=== PATIENT | male | born 1950 | race Caucasian/White ===

== ENCOUNTER 2020-08-18 08:46 | Emergency (ER) | payer OTHER, SELFPAY ==
[2020-08-18] VITALS (20 sets, daily range): BP systolic 166–179; BP diastolic 84–107; PULSE 60–84; RESP 11–25; TEMP 36.6–37.1; O2SAT 94–99
--- NOTE | 2020-08-18 08:45 | RT.EKG_ITS ---
APPROVED REPORT Exam: Resting ECG Reason for Exam: dizzy Patient Location: E HR:73 bpm ECG Measurements Heart Rate 73 AXIS AZ 146 P 70 QRSd 95 QRS -7 QT 358 T 2 QTc 394 Conclusion Sinus rhythm...normal P axis, V-rate 60- 99 Probable left atrial enlargement...P >50mS, <-0.10mV V1 Nonspecific repol abnormality, diffuse leads...ST dep, T flat/neg, ant/lat/inf. Less than 1mm ST depression in V4-6. I have reviewed and interpreted ECG and agree with software generated interpretation. No STEMI. No acute EKG to compare.
--- NOTE | 2020-08-18 08:49 | W.ED.GENAD ---
Discharge Plan Disposition Patient Disposition: HOME Condition: Fair Discharge Details Clinical Impression: Fatigue, Stress, Episodic lightheadedness Primary Care Provider: Unknown,Unknown ED Provider: Cyndy Vanessa Home Meds and New Rx's Prescriptions: Continued atorvastatin [Lipitor] 40 mg Tablet 40 mg PO DAILY RF: 0 atenolol 25 mg Tablet 25 mg PO DAILY RF: 0 hydrochlorothiazide 25 mg Tablet 25 mg PO DAILY RF: 0 geriatric multivitamin-min Tablet 1 tab PO DAILY RF: 0 ramipril 10 mg Tablet 10 mg PO BID RF: 0 Discharge Instructions Instructions: Stress (ED), Acute Coronary Syndrome (ED) Additional Instructions: Your labs and imaging are reassuring here today. However, I am concerned that this is associated with your heart diseasen and may be unstable angina. As we discussed, I would like for you to have an outpatient stress test. Until this is been completed, please do not physically exert yourself. Please return immediately if you develop shortness of breath, chest pain, lightheadedness or passing out. Please also follow-up with your primary care this week. I have asked our care management team to ensure that you receive prompt follow-up this coming week. I am also very concerned regarding the amount of stress you have. As much as you can, please take time for yourself and reduce stress. Attached is a list of local behavioral health professional. If you feel that counseling may be of benefit to you. Please also discuss this further with your primary care. In regard to your difficulty sleeping, you may find melatonin of benefit. If you develop any new or worsening symptoms please seek care urgently once again. Medical Decision Making Patient is a pleasant 70-year-old male presenting today with chief complaints of exertional fatigue and lightheadedness. 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 Has been receiving his care at [facility] but recently moved to [facility]. He reports over the past several months he has been noticing increased exertional fatigue and lightheadedness. States that this morning when snowblowing he would frequently have to stop and rest for approximately 5 minutes for full cessation of his symptoms. He denied any shortness of breath or chest pain associated with this. States over the past 2 days symptoms have become much worse and is requiring much less exertion for him to develop symptoms. States that now just ambulation will make him lightheaded and fatigued. He reports his symptoms resolved after approximately 1 minute of rest. He is asymptomatic currently. Denies any nausea or vomiting. States that he did have one episode of back pain while mowing but believes is associated with the position in which he was holding the molar. This pain subsided after he stopped swelling. No back pain since then, this was a few days ago. Denies any headache, visual change, focal areas of weakness. Denies any vertiginous symptoms. Describes the lightheadedness as presyncopal is not had any syncopal episodes. On exam patient appears anxious. He reports that he is very stressed as he lost his job recently and has been having difficulty finding a new job. He believes that this is contributing to his symptoms. Lungs are clear. Normal cardiac exam. No lower extremity edema, calf tenderness. Distal pulses are intact. Consult with patient's , [place] [phone]. She reports the patient did undergo an echocardiogram as well as a stress test in January both of which were negative which was completed at [facility]. She also reports that he had an MRI of his head last December as he was having difficulty with mentation, this was found to be negative. She is very concerned regarding stress level and inability to find employment. EKG was obtained and reviewed by Dr. Weinstein. Patient is in normal sinus rhythm with a rate of 73. He does have slight ST depression in V4 through the 6 less than 1 mm. No STEMI or other acute ischemic changes noted. Concern primarily at this time for unstable angina versus NSTEMI. Patient does have significant cardiac history and has progressively worsening exertional symptoms. Also considered PE. His exam and history is not consistent with dissection. Also considered stress and anxiety driven symptoms. Labs reviewed. CBC without signficant abnoramlity. D-dimer WNL. CMP without signficant abnormaliy. Troponin <0.05. No symptoms today, last had his exertional lightheadedness and fatigue yesterday. T4 WNL. CXR reviewed by radiologist: FINDINGS: Lungs: Unremarkable. No consolidation. Pleural spaces: Unremarkable. No pleural effusion. No pneumothorax. Heart/Mediastinum: The patient has undergone coronary bypass surgery. The cardiac silhouette is at the upper limit of normal size. Bones/joints: Unremarkable. IMPRESSION: Status post coronary bypass. No acute chest abnormality. Patient and I discussed labs and imaging. He continues to be asymptomatic. He has not had any symptoms today. We discussed disposition. I advised that I am concerned for unstable angina and recommended admission. Patient would prefer discharge home. Patient does live locally and is able to return promptly if he develops any recurrence or worsening symptoms. He is aware of the risks associated with my concerns of unstable angina, the potential risk of being discharged home. I do feel the patient has capacity to make this decision. He will avoid any exertional symptoms and will try stress reduction techniques. I am concerned about the amount of stress he is been having. The is also concerned about this as well as financial stressors. I have asked our care management team to reach out to them both regarding financial stress as well as help establish primary care with prompt follow-up this week. List of behavioral health services will be sent home with the patient. Plan for stress testing as soon as possible. Patient is on daily ASA. He will continue to monitor his BP at home and will discuss his elvated BP with his PCP. Strict return precautions were discussed. All of his quesitons and concerns were addressed, he is in agreement with this plan. HPI General Mode of arrival: ambulatory. Date/Time Provider Initiated Documentation: 08/18/20 08:49. Limitations to Documentation: no limitations. Information obtained by: patient and RN notes reviewed. History of Present Illness 70 year old M presents to the emergency department with the chief complaint of exertional fatigue, lightheadedness, described as moderate, with intensity rated at 1 (no pain ). and is localized to the back (had one episode of back pain, thought to be muscular, while mowing. ). Patient reports no radiation. Patient started experiencing this day(s) (has had increasing exertional symptoms over past several months, worse x2 days) and it has been intermittent. Immobilization improves symptom(s), Movement worsens symptoms . Patient notes denies chest pain, cough, diaphoresis, fever/chills, headaches, loss of appetite, nausea/vomiting, rash, shortness of breath, syncope and weakness. Patient did receive the following treatments prior to arrival, none Related Data Home Medications Medication Instructions Recorded Confirmed atenolol 25 mg PO DAILY 08/18/20 08/18/20 atorvastatin [Lipitor] 40 mg PO DAILY 08/18/20 08/18/20 geriatric multivitamin-min 1 tab PO DAILY 08/18/20 08/18/20 hydrochlorothiazide 25 mg PO DAILY 08/18/20 08/18/20 ramipril 10 mg PO BID 08/18/20 08/18/20 Allergies Allergy/AdvReac Type Severity Reaction Status Date / Time Penicillins Allergy Unverified 08/18/20 09:04 Review of Systems Constitutional Constitutional: Reports as per HPI, Denies chills, Denies fever(s), Denies headache(s), Denies lethargy and Denies poor appetite Eyes Eyes: Denies change in vision ENT Ears, Nose, Mouth, and Throat: Reports dizziness (lightheaded with exertion) and Denies headache(s) Cardiovascular Cardiovascular: Reports as per HPI, Denies chest pain, Denies chest pain at rest, Denies chest pain with activity, Denies syncope, Denies leg edema, Reports lightheadedness, Denies radiating jaw, neck or arm pain, Denies palpitations, Denies dyspnea and Denies dyspnea on exertion Respiratory Respiratory: Reports as per HPI, Denies chest congestion, Denies cough, Denies pain on inspiration, Denies pain with cough, Denies dyspnea, Denies dyspnea on exertion and Denies wheezing Gastrointestinal Gastrointestinal: Reports as per HPI, Denies abdominal pain, Denies diarrhea, Denies nausea and Denies vomiting Genitourinary Genitourinary: Denies system reviewed and no additional complaints, except as documented (denies change in urinary habits) Musculoskeletal Musculoskeletal: Reports as per HPI and Denies back pain Integumentary/Breasts Skin/Breast: Reports as per HPI and Denies rash Neurologic Neurologic: Reports as per HPI, Reports dizziness (lightheaded with exertion), Denies syncope and Denies headache(s) Endocrine Endocrine: Denies palpitations Allergic/Immunologic Allergic/Immunologic: Denies wheezing PFSH Social History Smoking/Tobacco Use Status: Never Smoking risk assessment performed?: Yes Alcohol Intake: former Drug use: Never Substance use type: does not use Do you feel safe at home: Yes Do you feel safe in your relationship?: Yes Exam Const General: cooperative, healthy appearing, comfortable, no acute distress and well developed Nutritional Appearance: average body habitus and well nourished Orientation: alert, awake and oriented x3 HENMT Head: normal to inspection Ears: hearing grossly normal bilaterally Mouth: moist mucous membranes Chest Chest: normal inspection of the chest, normal palpation of entire chest wall and no crepitus Resp Effort & Inspection: normal respiratory effort, able to speak in complete sentences and no respiratory distress Auscultation: clear to auscultation bilaterally, no rales, no rhonchi and no wheezes Cardio Rate: regular rate Rhythm: regular rhythm Heart Sounds: S1 normal and S2 normal GI Inspection: normal to inspection, no edema and non-distended Palpation: soft, no hepatosplenomegaly, not firm, no guarding, not rigid and nontender Auscultation: normal bowel sounds Back/Spine/Pelvis Thoracic/Lumbar Spine: thoracic and lumbar spine normal to inspection, No thoracic spinal tenderness and No lumbar spinal tenderness Skin General skin exam: no rashes or lesions noted Trauma: no lacerations or abrasions Neuro General: patient alert, patient awake and patient oriented x3 Cognition: normal cognition Speech: speech normal Gait: normal gait Extrem General: normal to inspection, capillary refill normal, no pedal edema, no calf tenderness, normal gait and other (1+ distal pulses in all extremities) Psych Appearance: grossly normal and well kempt Mental Status: mental status grossly normal Speech and Movement: speech and movement normal
--- NOTE | 2020-08-18 09:00 | DI.RAD_ITS ---
Exam(s) XR CHEST 2V PA LATERAL EXAM: XR CHEST 2V PA LATERAL CLINICAL HISTORY: exertiopnal fatigue, lightheadedness, CP TECHNIQUE: COMPARISON: No exams were available for comparison FINDINGS: The heart is at the upper limits of normal in size. The lungs appear clear. There is evidence of pr ior CABG surgery. There is no pleural effusion. IMPRESSION: No evidence of acute process. RADIATION DOSE DELIVERED: Total DLP
[2020-08-18 09:10] LABS: Abs Immature Grans 0.03 10^3/uL (0.0-0.06); Absolute Basophil Count 0.03 10^3/uL (0.0-0.2); Absolute Eosinophil Count 0.04 10^3/uL (0.0-0.7); Absolute Lymphocyte Count 0.89 10^3/uL (1.2-3.4); Absolute Monocyte Count 0.42 10^3/uL (0.1-0.8); Absolute Neutrophil Count 5.06 10^3/uL (1.2-6.7); Basophils % 0.5; Eosinophils % 0.6; HCT 47.2 % (40.0-50.0); HGB 15.5 g/dL (13.5-17.5); Immature Grans % 0.5; Lymphocytes % 13.8; MCH 29.1 pg (27.0-33.0); MCHC 32.8 % (32.0-36.0); MCV 88.6 fL (80-95); Monocytes % 6.5; Neutrophils % 78.1; Nucleated RBC 0 %; Platelet Count 239 10^3/uL (130-400); RBC 5.33 10^6/uL (4.36-5.78); RDW 12.6 % (11.8-14.1); RDW-SD 40.9 fL; WBC 6.47 10^3/uL (4.4-10.8)
[2020-08-18] MEDS: Aspirin 81 MG CHEW 324 MG CH (09:20)
[2020-08-18] MEDS: Normal Saline Flush 10 ML SYR IVP (09:22)
[2020-08-18 09:24] LABS: PTT Activated 25.9 sec (21.0-27.5); Prothrombin Time 10.1 sec (9.3-11.0)
[2020-08-18] MEDS: Atenolol 25 MG TAB PO (09:24)
[2020-08-18] MEDS: hydroCHLOROthiazide 25 MG TAB PO (09:24)
[2020-08-18 09:28] LABS: Bilirubin Negative (Negative); Blood Small (Negative); Clarity Clear (Clear); Glucose Negative (Negative); Ketones Negative (Negative); Leukocyte Esterase Negative (Negative); Nitrite Negative (Negative); Urobilinogen 0.2 EU/dL (Up TO 0.2)
[2020-08-18 09:32] LABS: ALT 24 U/L (16-63); AST 16 U/L (15-37); Albumin 4.3 g/dL (3.4-5.0); Alkaline Phosphatase 66 U/L (46-116); BUN 16 mg/dL (7-18); Bilirubin, Total 0.7 mg/dL (0.2-1.0); CREATININE 1.1 mg/dL (0.70-1.30); Calcium 9.4 mg/dL (8.5-10.1); Chloride 104 mmol/L (98-107); Glucose 125 mg/dL (74-106); Magnesium 1.9 mg/dL (1.8-2.4); Potassium 4.3 mmol/L (3.5-5.1); Sodium 142 mmol/L (136-145); TSH 3.76 uIU/mL (0.36-3.74); Total Protein 7.7 g/dL (6.4-8.2); Troponin I < 0.05 ng/mL (<0.06)
[2020-08-18 09:43] LABS: Bacteria Rare HPF (Negative); C & S Indicated? No; Casts Negative LPF (Negative); Crystals Negative HPF (Negative); Epithelial Cells Negative HPF (Negative); Mucus Negative (Negative); WBC Negative HPF (0-5)
[2020-08-18] MEDS: Atorvastatin 40 MG TAB PO (09:55)
[2020-08-18 10:01] LABS: D-Dimer 188 ng/mlFEU (<500)
--- NOTE | 2020-08-18 10:54 | DI.VRAD_ITS ---
PROCEDURE INFORMATION: Exam: XR Chest Exam date and time: 08/18/2020 9:01 AM Age: 70 years old Clinical indication: Other: Fatigue TECHNIQUE: Imaging protocol: XR of the chest. Views: 2 views. COMPARISON: No relevant prior studies available. FINDINGS: Lungs: Unremarkable. No consolidation. Pleural spaces: Unremarkable. No pleural effusion. No pneumothorax. Heart/Mediastinum: The patient has undergone coronary bypass surgery. The cardiac silhouette is at the upper limit of normal size. Bones/joints: Unremarkable. IMPRESSION: Status post coronary bypass. No acute chest abnormality. Dictated and Authenticated by: Serg Alonso MD. Ordering:BIBI Naylor MD
[2020-08-18 11:03] LABS: Source Nasal/Nares
--- NOTE | 2020-08-18 11:07 | NUR.NOTE ---
Nursing Note: faxed referral to [facility]
[2020-08-18 15:29] LABS: COVID-19 PCR Negative (Negative)
--- NOTE | 2020-08-19 08:19 | NUR.NOTE ---
patient contacted and advised of negative covid test results.
== END 2020-08-18 10:59 | disposition home or self-care (01) ==
PROVIDERS: Emergency Provider Physician Assistant
DX: R42 Dizziness and giddiness (principal); R53.83 Other fatigue
CPT/HCPCS: 36415; 80053; 87635; 93005; 99284; 71046; 81003; 81015; 83735; 84439; 84443; 84484; 85025; 85379; 85610; 85730; 93010; 99283

== ENCOUNTER 2020-08-28 00:59 | Outpatient (CLI) | payer OTHER, SELFPAY ==
--- NOTE | 2020-08-28 15:43 | NUR.NOTE ---
Nursing Note: Patient presented for ETT on time this morning. Was hooked up to ECG monitor and noted to have T wave inversions in leads II, III, aVF, V4-V6, which would make the ETT test nondiagnostic. Dr. Bowman recommended MPI order if further workup desired by PCP. Patient understanding and agreeable to plan. This RN contacted PCP office ([facility]) and spoke to nurse [place], who stated she would pass the information along to PCP regarding need for MPI order if follow-up needed.
== END 2020-08-28 01:19 ==
PROVIDERS: PCP Nurse Practitioner Adult Health; Visit Provider Physician Assistant
DX: I25.10 Atherosclerotic heart disease of native coronary artery without angina pectoris (principal); Z53.09 Procedure and treatment not carried out because of other contraindication; R94.31 Abnormal electrocardiogram [ECG] [EKG]

== ENCOUNTER → 2020-08-31 11:38 | Outpatient (BNVA) | payer OTHER, SELFPAY | PROVIDERS: PCP Nurse Practitioner Adult Health; Referring Provider Nurse Practitioner Adult Health; Visit Provider Internal Medicine Cardiovascular Disease | DX: I25.10 Atherosclerotic heart disease of native coronary artery without angina pectoris (principal); I10 Essential (primary) hypertension; R42 Dizziness and giddiness | CPT/HCPCS: 99204; 99215 ==

== ENCOUNTER → 2020-09-17 00:41 | Outpatient (CLI) | payer OTHER, SELFPAY ==
--- NOTE | 2020-09-17 07:15 | DI.NM_ITS ---
APPROVED REPORT Exam: Pharmacologic with low level exercise Patient Location: Out-Patient Room/Bed: Stress Nurse: Gisselle Mariee RN; Janell Paz RN Ordering Provider:LAURIE SHELDON, Contact Number: BMI: 28.27 Baseline Rhythm: Sinus Rhythm Comment: baseline T wave inversions lead III, aVF, V4, V5, and V6 Indications: hx quadruple bypass, lightheadedness with exertion, CAD, HTN Medical History Medical History: Anxiety, Depression, CAD, HLD, HTN, Insomnia, RLS Cardiac Medications: Atenolol, HCTZ, Atorvastatin, Ramipril, ASA Allergies: Penicillin Cardiac Risk Factors: CVD, HTN, HLD Previous Cardiac Procedures: 2002 Quadruple bypass Pretest Chest Pain Characteristics: none Exercise History: Sedentary Physical Disabilities: none Lung Sounds: Clear to auscultation Heart Sounds: Regular Stress Test Details Test: Pharmacologic stress was paired with low level exercise. Nuclear Acquisition: Rest Tc-99m/Stress Tc-99m 1 day Rest Isotope: Tc-99m Sestamibi. Dose: 10.7 Date: 09/17/2020 Injection Time: 0925 Stress Isotope: Tc-99m Sestamibi. Dose: 32.1 Date: 09/17/2020 Injection Time: 1125 HR Resting HR Supine: 52 bpm Max Heart Rate (APMHR): 151 bpm Resting HR Standin bpm Target HR (85% APMHR): 128 bpm Max HR Achieved: 112 bpm % of APMHR: 74 Recovery HR: 84 bpm HR response to stress: Normal HR response to stress BP Resting BP Supine: 144/86 mmHg Resting BP Standin/90 mmHg Max BP: 156/86 mmHg Recovery BP: 156/86 mmHg BP response to stress: Normal blood pressure response to stress. ECG Resting ECG: Sinus Rhythm Ectopy: none Comment: T wave inversion lead III, aVF, V4, V5, V6 Stress ECG: Sinus Rhythm ST Change: Horizontal ST depression Lead(s): I Maximum ST Deviation: 1 mm Arrhythmia: none Recovery ECG: Sinus Rhythm Recovery ST Change: Horizontal ST depression Lead(s): I, II, aVL Recovery ST Deviation: 1 mm Recovery Arrhythmia: none Clinical Stress Symptoms: none Rate Pressure Product: [id number] Stress ECG Conclusion 1. Resting electrocardiogram showed left ventricular hypertrophy with repolarization abnormalities 2. The patient underwent low-level exercise as well as pharmacologic stress with regadenoson 3. Heart rate achieved was 74% of predicted for age 4. 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 There is no residual ischemi a. EF is 44% Radiologist Interpretation Radiologist agrees with Hatchery Attendant's Interpretation. Radiologist Interpretation by: Homero Rock MD Interpretation Date/Time: 09/18/2020 14:46:28
[2020-09-17] MEDS: Regadenoson 0.4 MG/5 ML SYR IVP (11:14)
== END ==
PROVIDERS: PCP Nurse Practitioner Adult Health; Visit Provider Internal Medicine Cardiovascular Disease
DX: I25.10 Atherosclerotic heart disease of native coronary artery without angina pectoris (principal); I10 Essential (primary) hypertension; R42 Dizziness and giddiness; E78.5 Hyperlipidemia, unspecified; Z95.1 Presence of aortocoronary bypass graft
CPT/HCPCS: 78452; 93016; 93018; 93017; J2785

== ENCOUNTER 2020-10-24 20:13 | Outpatient (REF) | payer OTHER, SELFPAY ==
[2020-10-24 16:42] LABS: Bilirubin Negative (Negative); Blood Small (Negative); Clarity Clear (Clear); Glucose Negative (Negative); Ketones Negative (Negative); Leukocyte Esterase Negative (Negative); Nitrite Negative (Negative); Specific Gravity >= 1.030 (1.005-1.025); Urobilinogen 0.2 EU/dL (Up TO 0.2); pH 5.5 (5-8)
[2020-10-24 16:53] LABS: Bacteria Negative HPF (Negative); C & S Indicated? No; Casts Negative LPF (Negative); Crystals Negative HPF (Negative); Epithelial Cells Negative HPF (Negative); Mucus Negative (Negative); Other Cells Negative (Negative); RBC 0-2 HPF (0-2); WBC 0-2 HPF (0-5)
== END 2020-10-24 20:14 | disposition home or self-care (01) ==
LOC: LBN 20:13
PROVIDERS: PCP Nurse Practitioner Adult Health; Visit Provider Nurse Practitioner Adult Health
DX: R31.29 Other microscopic hematuria (principal)
CPT/HCPCS: 81003; 81015

== ENCOUNTER 2020-10-30 04:09 | Outpatient (CLI) | payer OTHER, SELFPAY ==
[2020-10-30 09:02] LABS: Calculated LDL 131 mg/dL (<100); Cholesterol 196 mg/dL (<200); HDL Cholesterol 37 mg/dL (40-60); TSH (W/Ref FT4) 4.43 uIU/mL (0.36-3.74); Triglyceride 141 mg/dL (<150)
[2020-10-30 09:32] LABS: FREE T4 0.94 ng/dL (0.76-1.46)
== END 2020-10-30 04:10 | disposition home or self-care (01) ==
LOC: LBO 04:09
PROVIDERS: PCP Nurse Practitioner Adult Health; Visit Provider Nurse Practitioner Adult Health
DX: E78.5 Hyperlipidemia, unspecified (principal); I25.10 Atherosclerotic heart disease of native coronary artery without angina pectoris; R94.6 Abnormal results of thyroid function studies; R79.89 Other specified abnormal findings of blood chemistry
CPT/HCPCS: 36415; 80061; 84439; 84443

== ENCOUNTER → 2020-11-30 10:50 | Outpatient (BNVA) | payer OTHER, SELFPAY | PROVIDERS: PCP Nurse Practitioner Adult Health; Referring Provider Nurse Practitioner Adult Health; Visit Provider Internal Medicine Cardiovascular Disease | DX: I25.10 Atherosclerotic heart disease of native coronary artery without angina pectoris (principal); Z95.1 Presence of aortocoronary bypass graft; I10 Essential (primary) hypertension | CPT/HCPCS: 99214; 99213 ==

== ENCOUNTER 2021-02-27 18:53 | Outpatient (REF) | payer OTHER, SELFPAY ==
[2021-02-27 20:23] LABS: Bilirubin Negative (Negative); Blood Moderate (Negative); Clarity Clear (Clear); Glucose Negative (Negative); Ketones Trace mg/dL (Negative); Leukocyte Esterase Negative (Negative); Nitrite Negative (Negative); Specific Gravity >= 1.030 (1.005-1.025); Urobilinogen 0.2 EU/dL (Up TO 0.2)
[2021-02-27 20:29] LABS: Bacteria Negative HPF (Negative); C & S Indicated? C&S Done As Ordered; Crystals Negative HPF (Negative); Epithelial Cells Negative HPF (Negative); Mucus Negative (Negative); Other Cells Negative (Negative); RBC 0-2 HPF (0-2); WBC 0-2 HPF (0-5)
== END 2021-02-27 18:54 | disposition home or self-care (01) ==
LOC: LBN 18:53
PROVIDERS: PCP Nurse Practitioner Adult Health; Visit Provider Nurse Practitioner Adult Health
DX: R31.29 Other microscopic hematuria
CPT/HCPCS: 81003; 81015; 87086

== ENCOUNTER 2021-03-04 03:07 | Outpatient (CLI) | payer MEDICARE, SELFPAY ==
[2021-03-04 09:29] LABS: Anion Gap 6.3 mmol/L (3-11); BUN 19 mg/dL (7-18); CO2 30.7 mmol/L (21.0-32.0); Calcium 9.2 mg/dL (8.5-10.1); Calculated LDL 105 mg/dL (<100); Chloride 101 mmol/L (98-107); Cholesterol 168 mg/dL (<200); Glucose 97 mg/dL (74-106); HDL Cholesterol 43 mg/dL (40-60); Potassium 4.1 mmol/L (3.5-5.1); Sodium 138 mmol/L (136-145); Triglyceride 103 mg/dL (<150)
== END 2021-03-04 03:08 | disposition home or self-care (01) ==
LOC: LBO 03:08
PROVIDERS: PCP Nurse Practitioner Adult Health; Visit Provider Nurse Practitioner Adult Health
DX: I10 Essential (primary) hypertension; E78.5 Hyperlipidemia, unspecified; I25.10 Atherosclerotic heart disease of native coronary artery without angina pectoris
CPT/HCPCS: 36415; 80048; 80061

== ENCOUNTER 2021-03-07 02:12 | Outpatient (CLI) | payer MEDICARE, SELFPAY ==
--- NOTE | 2021-03-07 08:05 | DI.CT_ITS ---
Exam(s) CT HEAD WO EXAM: CT HEAD WO CLINICAL HISTORY: r/o acute process, CVA,spell of altered cognitiion,change in speech,r41.89,. TECHNIQUE: Imaging Protocol: Axial computed tomography images with coronal and sagittal reformatted images were created and reviewed COMPARISON: No exams were available for comparison FINDINGS: There are no skull fractures nor fluid in the visualized paranasal sinuses. There is no evidence of intracranial hemorrhage, mass effect, or shift of midline structures. There are no extra-axial fluid collections. The ventricles are not enlarged or shifted and there is no blo od within the ventricular system nor within the basal cisterns. Calcification noted left vertebral artery at skull base IMPRESSION: No acute intracranial findings on this noninfused CT scan of the brain. RADIATION DOSE DELIVERED: 832.81mGy.cm Total DLP DATA REPOSITORY: All CT scans at this facility are submitted to the National Radiology Data Registry (NRDR) Dose Index Registry (DIR) with the [employer] (A[employer]). RADIATION OPTIMIZATION: All CT scans at this facility use at least one of these dose optimization te chniques: automated exposure control; mA and/or kV adjustment per patient size (includes targeted exa ms where dose is matched to clinical indication); or iterative reconstruction.
== END 2021-03-07 02:32 ==
PROVIDERS: PCP Nurse Practitioner Adult Health; Visit Provider Nurse Practitioner Adult Health
DX: R41.89 Other symptoms and signs involving cognitive functions and awareness (principal); R47.89 Other speech disturbances
CPT/HCPCS: 70450

== ENCOUNTER → 2021-05-31 10:16 | Outpatient (BNVA) | payer MEDICARE, SELFPAY | PROVIDERS: PCP Nurse Practitioner Adult Health; Visit Provider Internal Medicine Cardiovascular Disease | DX: E78.5 Hyperlipidemia, unspecified (principal); I10 Essential (primary) hypertension; I25.10 Atherosclerotic heart disease of native coronary artery without angina pectoris | CPT/HCPCS: 99214; 99213 ==